=== PATIENT | male | born 1985 | race Caucasian/White ===

== ENCOUNTER 2024-12-07 14:44 | Emergency (ER) | payer OTHER, SELFPAY ==
[2024-12-07 14:53] VITALS: BP 175/82; PULSE 92; RESP 20; TEMP 36.4; O2SAT 98; BMI 31.3
[2024-12-07 15:35] LABS: Hematocrit* 47.5 % (37.0-53.0); Hemoglobin* 16.9 gm/dL (13.5-17.5); Immature Granulocytes Pct Auto 0.2 %; Mean Corpuscular HGB Conc 36 gm/dL (32-36); Mean Corpuscular Hemoglobin 32 pg (26-34); Mean Corpuscular Volume 90 fL (80-100); RDW Coefficient of Variation % 12.8 % (11.5-15.5); Red Blood Count* 5.26 m/uL (4.30-5.90); White Blood Count* 12.65 K/uL (4.50-11.00)
--- NOTE | 2024-12-07 15:37 | ED_ITS ---
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 ONE Administration Folic Acid 1 mg 12/07/24 21:29 12/07/24 21:40 Folic Acid 1 Mg Tablet PO 12/07/24 21:30 1 mg ONCE ONE Administration Hydroxyzine Pamoate 50 mg 12/07/24 22:50 12/07/24 23:11 Hydroxyzine Pamoate 25 Mg Capsule PO 12/07/24 22:51 50 mg ONCE ONE Administration Sodium Chloride 1,000 mls @ 1,000 mls/hr 12/07/24 19:59 12/07/24 21:34 0.9 % Sodium Chloride 1000 Ml IV 12/07/24 20:58 Infused .Q1H ELLE Infusion Lorazepam 0.5 mg 12/07/24 18:24 12/07/24 19:39 Lorazepam 2 Mg/Ml Inj IVP 12/07/24 18:25 Not Given ONCE ONE Lorazepam 1 mg 12/07/24 19:34 12/07/24 18:50 Lorazepam 2 Mg/Ml Inj IM 12/07/24 19:35 1 mg ONCE ONE Administration Lorazepam 1 mg 12/07/24 19:59 12/07/24 20:26 Lorazepam 2 Mg/Ml Inj IVP 12/07/24 20:00 1 mg ONCE ONE Administration Lorazepam 1 mg 12/08/24 01:01 12/08/24 02:37 Lorazepam 2 Mg/Ml Inj IVP 1 mg Q6H PRN Administration Multivitamins/Minerals 1 tab 12/07/24 21:29 12/07/24 21:41 Multivitamin/Minerals 1 Tablet PO 12/07/24 21:30 1 tab ONCE ONE Administration Nicotine 1 patch 12/07/24 20:00 12/07/24 20:22 Nicotine 21 Mg Patch TRANSDERMA 1 patch Q24H ELLE Administration Olanzapine 5 mg 12/07/24 19:34 12/07/24 18:50 Olanzapine 5 Mg Tab.Rapdis PO 12/07/24 19:35 5 mg ONCE ONE Administration Olanzapine 10 mg 12/08/24 01:01 12/08/24 01:25 Olanzapine 5 Mg Tab.Rapdis PO 12/08/24 01:02 10 mg ONCE ONE Administration Olanzapine 10 mg 12/08/24 01:23 12/08/24 02:03 Olanzapine 5 Mg Tab.Rapdis PO 12/08/24 01:24 Not Given ONCE ONE Thiamine HCl 100 mg 12/07/24 21:29 12/07/24 21:41 Thiamine 100 Mg Tablet PO 12/07/24 21:30 100 mg ONCE ONE Administration <Carleen Burnham MD - Last Filed: 12/08/24 07:51> Generic Name Dose Route Start Last Admin Trade Name Freq PRN Reason Stop Dose Admin Lorazepam 1 mg 12/08/24 06:09 12/08/24 06:28 Lorazepam 1 Mg Tablet PO 1 mg Q4H PRN Administration Nicotine 1 patch 12/08/24 02:45 12/08/24 02:37 Nicotine 21 Mg Patch TRANSDERMA 1 patch Q24H ELLE Administration Discontinued Medications Generic Name Dose Route Start Last Admin Trade Name Freq PRN Reason Stop Dose Admin Diazepam 10 mg 12/08/24 09:13 12/08/24 09:34 Diazepam 5 Mg/Ml Inj IV 12/08/24 09:14 10 mg ONCE ONE Administration Folic Acid 1 mg 12/07/24 21:29 12/07/24 21:40 Folic Acid 1 Mg Tablet PO 12/07/24 21:30 1 mg ONCE ONE Administration Hydroxyzine Pamoate 50 mg 12/07/24 22:50 12/07/24 23:11 Hydroxyzine Pamoate 25 Mg Capsule PO 12/07/24 22:51 50 mg ONCE ONE Administration Sodium Chloride 1,000 mls @ 1,000 mls/hr 12/07/24 19:59 12/07/24 21:34 0.9 % Sodium Chloride 1000 Ml IV 12/07/24 20:58 Infused .Q1H ELLE Infusion Lorazepam 0.5 mg 12/07/24 18:24 12/07/24 19:39 Lorazepam 2 Mg/Ml Inj IVP 12/07/24 18:25 Not Given ONCE ONE Lorazepam 1 mg 12/07/24 19:34 12/07/24 18:50 Lorazepam 2 Mg/Ml Inj IM 12/07/24 19:35 1 mg ONCE ONE Administration Lorazepam 1 mg 12/07/24 19:59 12/07/24 20:26 Lorazepam 2 Mg/Ml Inj IVP 12/07/24 20:00 1 mg ONCE ONE Administration Lorazepam 1 mg 12/08/24 01:01 12/08/24 02:37 Lorazepam 2 Mg/Ml Inj IVP 1 mg Q6H PRN Administration Multivitamins/Minerals 1 tab 12/07/24 21:29 12/07/24 21:41 Multivitamin/Minerals 1 Tablet PO 12/07/24 21:30 1 tab ONCE ONE Administration Nicotine 1 patch 12/07/24 20:00 12/07/24 20:22 Nicotine 21 Mg Patch TRANSDERMA 1 patch Q24H ELLE Administration Olanzapine 5 mg 12/07/24 19:34 12/07/24 18:50 Olanzapine 5 Mg Tab.Rapdis PO 12/07/24 19:35 5 mg ONCE ONE Administration Olanzapine 10 mg 12/08/24 01:01 12/08/24 01:25 Olanzapine 5 Mg Tab.Rapdis PO 12/08/24 01:02 10 mg ONCE ONE Administration Olanzapine 10 mg 12/08/24 01:23 12/08/24 02:03 Olanzapine 5 Mg Tab.Rapdis PO 12/08/24 01:24 Not Given ONCE ONE Thiamine HCl 100 mg 12/07/24 21:29 12/07/24 21:41 Thiamine 100 Mg Tablet PO 12/07/24 21:30 100 mg ONCE ONE Administration <Chip Badillo MD - Last Filed: 12/08/24 11:24> MDM - Psych MDM Narrative Medical decision making narrative: Patient is a 38-year-old male presenting to the emergency department for a psychiatric evaluation. Considering he has a plan on how he would commit suicide and his friend is very worried about him I do believe he will likely need inpatient treatment. He is agreeable to this. Will do psychiatric labs at this time. There is no signs of a right orbital fracture. I do not believe imaging is necessary. CBC, CMP, ethanol level, acetaminophen level, salicylate level, TSH, urinalysis, urine drug screen, COVID test all ordered. Patient's CBC shows slightly elevated white blood cell count but there is no clear signs of infection. CMP shows a sodium of 129 with elevated liver enzymes. Liver enzymes are consistent with alcoholic liver disease. Likely his low sodium is due to his alcohol drinking. Will check a magnesium. Salicylate and acetaminophen levels are not concerning. His alcohol level is 0.37%. DEVIKA did speak to the patient and agrees the patient needs inpatient admission. He is voluntary at this time. Rest of patient's lab work returned any he is medically cleared for transfer. <Beltran Zavala, DO - Last Filed: 12/07/24 16:30> Patient is a 38-year-old male presenting to the emergency department for a psychiatric evaluation. Considering he has a plan on how he would commit suicide and his friend is very worried about him I do believe he will likely need inpatient treatment. He is agreeable to this. Will do psychiatric labs at this time. There is no signs of a right orbital fracture. I do not believe imaging is necessary. CBC, CMP, ethanol level, acetaminophen level, salicylate level, TSH, urinalysis, urine drug screen, COVID test all ordered. Patient's CBC shows slightly elevated white blood cell count but there is no clear signs of infection. CMP shows a sodium of 129 with elevated liver enzymes. Liver enzymes are consistent with alcoholic liver disease. Likely his low sodium is due to his alcohol drinking. Will check a magnesium. Salicylate and acetaminophen levels are not concerning. His alcohol level is 0.37%. DEVIKA did speak to the patient and agrees the patient needs inpatient admission. He is voluntary at this time. Rest of patient's lab work returned any he is medically cleared for transfer. Patient was signed out to me by my colleague Dr. Zavala. During patient's stay he was a very nice but started getting more more agitated wanting his phone. I spoke to him and he was agreeable to Ativan and he was given 1 mg IM. Unfortunately he then wanted to go in nursing staff taking a give me. I did stop him from going and I will therefore put him on a hold. He was agreeable to Zyprexa 5 mg p.o.. However in discussion with him if he became much more cooperative. He expressed his sadness at losing his dad. Notes that since losing his dad his mom had moved into min she recently moved out and she he is missing that interaction. States he was very close with his dad. In addition he came out to his mom which did not go as he had hoped. His friends however been very supportive and loving with him. At this time he is agreeable to stay. I do place him on the hold however as he is in my opinion at high risk for self-harm. He is requesting the ability to vape but of do not feel that it would be safe for him to call side at this time even though he is agreed to be cooperative. Instead we have looked for a Nicotrol inhaler but we do not have that. Will use the nicotine 21 mcg patch. Patient seemed to be improved after this but then started feeling anxious once again. Very tearful. States his heart was pounding. His pulse was normal. At this time will place an IV given 1 L of normal saline as well as 1 mg IV Ativan. Addendum: Patient feeling much better at this time. We were able to obtain some Gatorade and he was able to drink that as well as eat a sandwich and some chips. He had not eaten in approximately 3 days. Assessment/plan : 1. Suicidal ideation-likely complicated by grief reaction from losing his dad as well as coming out being gait to his mom which did not go as planned. He has been tearful here. At 1 time felt that he just really wanted to leave but we were able to talk to him. He is very kind and is very directable and cooperative. Because he did attempt to leave and I told him I would not allow him to leave will place him on a hold at this time. DEVIKA is assisting us with placement. Given his agitation, tearfulness patient had been given 1 mg IM Ativan followed by Zyprexa 5 mg. We followed that with an additional 1 mg of IV Ativan with improvement. 2. Alcohol intoxication-a level 0.37. Patient denies history of withdrawal or seizures. Will continue to monitor. Patient has mild elevation of AST 125, ALT of 80. TSH is normal. U tox positive for marijuana no other drugs. Patient receives folic acid 1 mg, Thiamine 100 mg and multivitamin. 3. Disposition-awaiting placement for depression, suicidal ideation. In addition Chip's friend has been instructed to have all of his guns removed from the house. This happened prior to me taking over the patient. I was told that patient had been medically cleared for transfer but this does not appear to be communicated to nursing staff. Elevated alcohol level I think it is best that he sleep ear tonight. Will we do DEVIKA evaluation tomorrow morning. Patient is on a hold. Will initiate CIWA for history of alcohol abuse although he denies withdrawal or seizure. He is not in withdrawal tonight-I believe he is agitated from the events of the past year and especially in the past week. 2330: Patient requesting sleep medications. He is feeling much better after normal saline bolus. Hydroxyzine 50 mg p.o. was given. Will sign this patient out to my colleague Dr. Burnham. <Micki Rolon MD - Last Filed: 12/07/24 23:31> Medical Records Attestation: I reviewed the patient's medical records. <Micki Rolon MD - Last Filed: 12/07/24 23:31> Lab Data Attestation: I reviewed the patient's lab results. <Micki Rolon MD - Last Filed: 12/07/24 23:31> Labs: Lab Results 12/07/24 12/07/24 12/07/24 Range/Units 15:15 15:23 15:55 WBC 12.65 H (4.50-11.00) K/uL RBC 5.26 (4.30-5.90) m/uL Hgb 16.9 (13.5-17.5) gm/dL Hct 47.5 (37.0-53.0) % MCV 90 (80-100) fL MCH 32 (26-34) pg MCHC 36 (32-36) gm/dL RDW Coeff of [place] 12.8 (11.5-15.5) % Plt Count 284 (140-440) K/uL Neut % (Auto) 81.7 H (42.0-72.0) % Lymph % (Auto) 11.4 L (20-44) % [place] % (Auto) 6.3 (0.0-11.0) % Eos % (Auto) 0.3 (0.0-7.0) % Baso % (Auto) 0.1 (0.0-3.0) % Neut # (Auto) 10.30 H (1.7-7.0) K/uL Lymph # (Auto) 1.40 (0.90-2.90) K/uL [place] # (Auto) 0.80 (0.00-0.90) K/UL Eos # (Auto) 0.00 (0.00-0.50) K/uL Baso # (Auto) 0.00 (0.00-0.30) K/uL Abs Immat Gran (auto) 0.00 (0.00-0.30) K/uL Imm/Tot Granulo (auto) 0.2 % Sodium 129 L (135-149) mmol/L Potassium 4.5 (3.6-5.1) mmol/L Chloride 89 L (96-114) mmol/L Carbon Dioxide 25 (20-32) mmol/L Anion Gap 15 (7-15) mEq/L BUN 7 (5-24) mg/dL Creatinine 0.9 (0.5-1.5) mg/dL Estimated Creat Clear 102.01 Estimated GFR 111 ml/min Glucose 135 H (60-115) mg/dL Calcium 9.3 (8.4-10.6) mg/dL Magnesium 2.1 (1.5-2.6) mg/dL Total Bilirubin 1.2 (0.1-1.5) mg/dL AST 125 H (12-35) U/L ALT 80 H (4-50) U/L Alkaline Phosphatase 103 (40-150) U/L Total Protein 8.7 H (6.0-8.3) g/dL Albumin 5.2 H (3.3-5.0) g/dL TSH 0.366 (0.270-4.20) uIU/mL Urine Color Yellow (Yellow) Urine Appearance Clear (Clear) Urine pH 6.5 (5.0-8.5) Ur Specific [place] 1.010 (1.000-1.030) Urine Protein 1+ A (Negative) Urine Glucose (UA) Negative (Negative) Urine Ketones Negative (Negative) Urine Blood 2+ A (Negative) Urine Nitrite Negative (Negative) Urine Bilirubin Negative (Negative) Urine Urobilinogen 1.0 (0.2-1.0) Ur Leukocyte Esterase Negative (Negative) Urine RBC 0-2 (0-2) Urine WBC 0-2 (0-5) Ur Squamous Epith Cells Few (None-Few) Urine Bacteria None (None) Salicylates < 1.0 L (1.0-10) mg/dL Urine Opiates Screen Negative (Negative) Ur Oxycodone Screen Negative (Negative) Urine Methadone Screen Negative (Negative) Acetaminophen < 10.0 (10.0-30.0) ug/mL Ur Barbiturates Screen Negative (Negative) U Tricyclic Antidepress Negative (Negative) Ur Phencyclidine Scrn Negative (Negative) Ur Amphetamines Screen Negative (Negative) U Methamphetamines Scrn Negative (Negative) U Benzodiazepines Scrn Negative (Negative) Urine Cocaine Screen Negative (Negative) U Marijuana (THC) Screen POSITIVE A (Negative) Ur Drug Screen Comment See Note Ethyl Alcohol 0.37 H* (0.01-0.03) % SARS-CoV-2 (PCR) Negative SARS-CoV-2 (Negative) Lab Acknowledgement 12/07/24 12/08/24 Range/Units 16:01 06:52 WBC (4.50-11.00) K/uL RBC (4.30-5.90) m/uL Hgb (13.5-17.5) gm/dL Hct (37.0-53.0) % MCV (80-100) fL MCH (26-34) pg MCHC (32-36) gm/dL RDW Coeff of [place] (11.5-15.5) % Plt Count (140-440) K/uL Neut % (Auto) (42.0-72.0) % Lymph % (Auto) (20-44) % [place] % (Auto) (0.0-11.0) % Eos % (Auto) (0.0-7.0) % Baso % (Auto) (0.0-3.0) % Neut # (Auto) (1.7-7.0) K/uL Lymph # (Auto) (0.90-2.90) K/uL [place] # (Auto) (0.00-0.90) K/UL Eos # (Auto) (0.00-0.50) K/uL Baso # (Auto) (0.00-0.30) K/uL Abs Immat Gran (auto) (0.00-0.30) K/uL Imm/Tot Granulo (auto) % Sodium (135-149) mmol/L Potassium (3.6-5.1) mmol/L Chloride (96-114) mmol/L Carbon Dioxide (20-32) mmol/L Anion Gap (7-15) mEq/L BUN (5-24) mg/dL Creatinine (0.5-1.5) mg/dL Estimated Creat Clear Estimated GFR ml/min Glucose (60-115) mg/dL Calcium (8.4-10.6) mg/dL Magnesium (1.5-2.6) mg/dL Total Bilirubin (0.1-1.5) mg/dL AST (12-35) U/L ALT (4-50) U/L Alkaline Phosphatase (40-150) U/L Total Protein (6.0-8.3) g/dL Albumin (3.3-5.0) g/dL TSH (0.270-4.20) uIU/mL Urine Color (Yellow) Urine Appearance (Clear) Urine pH (5.0-8.5) Ur Specific [place] (1.000-1.030) Urine Protein (Negative) Urine Glucose (UA) (Negative) Urine Ketones (Negative) Urine Blood (Negative) Urine Nitrite (Negative) Urine Bilirubin (Negative) Urine Urobilinogen (0.2-1.0) Ur Leukocyte Esterase (Negative) Urine RBC (0-2) Urine WBC (0-5) Ur Squamous Epith Cells (None-Few) Urine Bacteria (None) Salicylates (1.0-10) mg/dL Urine Opiates Screen (Negative) Ur Oxycodone Screen (Negative) Urine Methadone Screen (Negative) Acetaminophen (10.0-30.0) ug/mL Ur Barbiturates Screen (Negative) U Tricyclic Antidepress (Negative) Ur Phencyclidine Scrn (Negative) Ur Amphetamines Screen (Negative) U Methamphetamines Scrn (Negative) U Benzodiazepines Scrn (Negative) Urine Cocaine Screen (Negative) U Marijuana (THC) Screen (Negative) Ur Drug Screen Comment Ethyl Alcohol < 0.01 (0.01-0.03) % SARS-CoV-2 (PCR) (Negative) Lab Acknowledgement Test Added <Beltran Zavala, DO - Last Filed: 12/07/24 16:30> Lab Results 12/07/24 12/07/24 12/07/24 Range/Units 15:15 15:23 15:55 WBC 12.65 H (4.50-11.00) K/uL RBC 5.26 (4.30-5.90) m/uL Hgb 16.9 (13.5-17.5) gm/dL Hct 47.5 (37.0-53.0) % MCV 90 (80-100) fL MCH 32 (26-34) pg MCHC 36 (32-36) gm/dL RDW Coeff of [place] 12.8 (11.5-15.5) % Plt Count 284 (140-440) K/uL Neut % (Auto) 81.7 H (42.0-72.0) % Lymph % (Auto) 11.4 L (20-44) % [place] % (Auto) 6.3 (0.0-11.0) % Eos % (Auto) 0.3 (0.0-7.0) % Baso % (Auto) 0.1 (0.0-3.0) % Neut # (Auto) 10.30 H (1.7-7.0) K/uL Lymph # (Auto) 1.40 (0.90-2.90) K/uL [place] # (Auto) 0.80 (0.00-0.90) K/UL Eos # (Auto) 0.00 (0.00-0.50) K/uL Baso # (Auto) 0.00 (0.00-0.30) K/uL Abs Immat Gran (auto) 0.00 (0.00-0.30) K/uL Imm/Tot Granulo (auto) 0.2 % Sodium 129 L (135-149) mmol/L Potassium 4.5 (3.6-5.1) mmol/L Chloride 89 L (96-114) mmol/L Carbon Dioxide 25 (20-32) mmol/L Anion Gap 15 (7-15) mEq/L BUN 7 (5-24) mg/dL Creatinine 0.9 (0.5-1.5) mg/dL Estimated Creat Clear 102.01 Estimated GFR 111 ml/min Glucose 135 H (60-115) mg/dL Calcium 9.3 (8.4-10.6) mg/dL Magnesium 2.1 (1.5-2.6) mg/dL Total Bilirubin 1.2 (0.1-1.5) mg/dL AST 125 H (12-35) U/L ALT 80 H (4-50) U/L Alkaline Phosphatase 103 (40-150) U/L Total Protein 8.7 H (6.0-8.3) g/dL Albumin 5.2 H (3.3-5.0) g/dL TSH 0.366 (0.270-4.20) uIU/mL Urine Color Yellow (Yellow) Urine Appearance Clear (Clear) Urine pH 6.5 (5.0-8.5) Ur Specific [place] 1.010 (1.000-1.030) Urine Protein 1+ A (Negative) Urine Glucose (UA) Negative (Negative) Urine Ketones Negative (Negative) Urine Blood 2+ A (Negative) Urine Nitrite Negative (Negative) Urine Bilirubin Negative (Negative) Urine Urobilinogen 1.0 (0.2-1.0) Ur Leukocyte Esterase Negative (Negative) Urine RBC 0-2 (0-2) Urine WBC 0-2 (0-5) Ur Squamous Epith Cells Few (None-Few) Urine Bacteria None (None) Salicylates < 1.0 L (1.0-10) mg/dL Urine Opiates Screen Negative (Negative) Ur Oxycodone Screen Negative (Negative) Urine Methadone Screen Negative (Negative) Acetaminophen < 10.0 (10.0-30.0) ug/mL Ur Barbiturates Screen Negative (Negative) U Tricyclic Antidepress Negative (Negative) Ur Phencyclidine Scrn Negative (Negative) Ur Amphetamines Screen Negative (Negative) U Methamphetamines Scrn Negative (Negative) U Benzodiazepines Scrn Negative (Negative) Urine Cocaine Screen Negative (Negative) U Marijuana (THC) Screen POSITIVE A (Negative) Ur Drug Screen Comment See Note Ethyl Alcohol 0.37 H* (0.01-0.03) % SARS-CoV-2 (PCR) Negative SARS-CoV-2 (Negative) Lab Acknowledgement 12/07/24 12/08/24 Range/Units 16:01 06:52 WBC (4.50-11.00) K/uL RBC (4.30-5.90) m/uL Hgb (13.5-17.5) gm/dL Hct (37.0-53.0) % MCV (80-100) fL MCH (26-34) pg MCHC (32-36) gm/dL RDW Coeff of Sylv[place] (11.5-15.5) % Plt Count (140-440) K/uL Neut % (Auto) (42.0-72.0) % Lymph % (Auto) (20-44) % [place] % (Auto) (0.0-11.0) % Eos % (Auto) (0.0-7.0) % Baso % (Auto) (0.0-3.0) % Neut # (Auto) (1.7-7.0) K/uL Lymph # (Auto) (0.90-2.90) K/uL [place] # (Auto) (0.00-0.90) K/UL Eos # (Auto) (0.00-0.50) K/uL Baso # (Auto) (0.00-0.30) K/uL Abs Immat Gran (auto) (0.00-0.30) K/uL Imm/Tot Granulo (auto) % Sodium (135-149) mmol/L Potassium (3.6-5.1) mmol/L Chloride (96-114) mmol/L Carbon Dioxide (20-32) mmol/L Anion Gap (7-15) mEq/L BUN (5-24) mg/dL Creatinine (0.5-1.5) mg/dL Estimated Creat Clear Estimated GFR ml/min Glucose (60-115) mg/dL Calcium (8.4-10.6) mg/dL Magnesium (1.5-2.6) mg/dL Total Bilirubin (0.1-1.5) mg/dL AST (12-35) U/L ALT (4-50) U/L Alkaline Phosphatase (40-150) U/L Total Protein (6.0-8.3) g/dL Albumin (3.3-5.0) g/dL TSH (0.270-4.20) uIU/mL Urine Color (Yellow) Urine Appearance (Clear) Urine pH (5.0-8.5) Ur Specific [place] (1.000-1.030) Urine Protein (Negative) Urine Glucose (UA) (Negative) Urine Ketones (Negative) Urine Blood (Negative) Urine Nitrite (Negative) Urine Bilirubin (Negative) Urine Urobilinogen (0.2-1.0) Ur Leukocyte Esterase (Negative) Urine RBC (0-2) Urine WBC (0-5) Ur Squamous Epith Cells (None-Few) Urine Bacteria (None) Salicylates (1.0-10) mg/dL Urine Opiates Screen (Negative) Ur Oxycodone Screen (Negative) Urine Methadone Screen (Negative) Acetaminophen (10.0-30.0) ug/mL Ur Barbiturates Screen (Negative) U Tricyclic Antidepress (Negative) Ur Phencyclidine Scrn (Negative) Ur Amphetamines Screen (Negative) U Methamphetamines Scrn (Negative) U Benzodiazepines Scrn (Negative) Urine Cocaine Screen (Negative) U Marijuana (THC) Screen (Negative) Ur Drug Screen Comment Ethyl Alcohol < 0.01 (0.01-0.03) % SARS-CoV-2 (PCR) (Negative) Lab Acknowledgement Test Added <Micki Rolon MD - Last Filed: 12/07/24 23:31> Lab Results 12/07/24 12/07/24 12/07/24 Range/Units 15:15 15:23 15:55 WBC 12.65 H (4.50-11.00) K/uL RBC 5.26 (4.30-5.90) m/uL Hgb 16.9 (13.5-17.5) gm/dL Hct 47.5 (37.0-53.0) % MCV 90 (80-100) fL MCH 32 (26-34) pg MCHC 36 (32-36) gm/dL RDW Coeff of [place] 12.8 (11.5-15.5) % Plt Count 284 (140-440) K/uL Neut % (Auto) 81.7 H (42.0-72.0) % Lymph % (Auto) 11.4 L (20-44) % [place] % (Auto) 6.3 (0.0-11.0) % Eos % (Auto) 0.3 (0.0-7.0) % Baso % (Auto) 0.1 (0.0-3.0) % Neut # (Auto) 10.30 H (1.7-7.0) K/uL Lymph # (Auto) 1.40 (0.90-2.90) K/uL [place] # (Auto) 0.80 (0.00-0.90) K/UL Eos # (Auto) 0.00 (0.00-0.50) K/uL Baso # (Auto) 0.00 (0.00-0.30) K/uL Abs Immat Gran (auto) 0.00 (0.00-0.30) K/uL Imm/Tot Granulo (auto) 0.2 % Sodium 129 L (135-149) mmol/L Potassium 4.5 (3.6-5.1) mmol/L Chloride 89 L (96-114) mmol/L Carbon Dioxide 25 (20-32) mmol/L Anion Gap 15 (7-15) mEq/L BUN 7 (5-24) mg/dL Creatinine 0.9 (0.5-1.5) mg/dL Estimated Creat Clear 102.01 Estimated GFR 111 ml/min Glucose 135 H (60-115) mg/dL Calcium 9.3 (8.4-10.6) mg/dL Magnesium 2.1 (1.5-2.6) mg/dL Total Bilirubin 1.2 (0.1-1.5) mg/dL AST 125 H (12-35) U/L ALT 80 H (4-50) U/L Alkaline Phosphatase 103 (40-150) U/L Total Protein 8.7 H (6.0-8.3) g/dL Albumin 5.2 H (3.3-5.0) g/dL TSH 0.366 (0.270-4.20) uIU/mL Urine Color Yellow (Yellow) Urine Appearance Clear (Clear) Urine pH 6.5 (5.0-8.5) Ur Specific [place] 1.010 (1.000-1.030) Urine Protein 1+ A (Negative) Urine Glucose (UA) Negative (Negative) Urine Ketones Negative (Negative) Urine Blood 2+ A (Negative) Urine Nitrite Negative (Negative) Urine Bilirubin Negative (Negative) Urine Urobilinogen 1.0 (0.2-1.0) Ur Leukocyte Esterase Negative (Negative) Urine RBC 0-2 (0-2) Urine WBC 0-2 (0-5) Ur Squamous Epith Cells Few (None-Few) Urine Bacteria None (None) Salicylates < 1.0 L (1.0-10) mg/dL Urine Opiates Screen Negative (Negative) Ur Oxycodone Screen Negative (Negative) Urine Methadone Screen Negative (Negative) Acetaminophen < 10.0 (10.0-30.0) ug/mL Ur Barbiturates Screen Negative (Negative) U Tricyclic Antidepress Negative (Negative) Ur Phencyclidine Scrn Negative (Negative) Ur Amphetamines Screen Negative (Negative) U Methamphetamines Scrn Negative (Negative) U Benzodiazepines Scrn Negative (Negative) Urine Cocaine Screen Negative (Negative) U Marijuana (THC) Screen POSITIVE A (Negative) Ur Drug Screen Comment See Note Ethyl Alcohol 0.37 H* (0.01-0.03) % SARS-CoV-2 (PCR) Negative SARS-CoV-2 (Negative) Lab Acknowledgement 12/07/24 12/08/24 Range/Units 16:01 06:52 WBC (4.50-11.00) K/uL RBC (4.30-5.90) m/uL Hgb (13.5-17.5) gm/dL Hct (37.0-53.0) % MCV (80-100) fL MCH (26-34) pg MCHC (32-36) gm/dL RDW Coeff of [place] (11.5-15.5) % Plt Count (140-440) K/uL Neut % (Auto) (42.0-72.0) % Lymph % (Auto) (20-44) % [place] % (Auto) (0.0-11.0) % Eos % (Auto) (0.0-7.0) % Baso % (Auto) (0.0-3.0) % Neut # (Auto) (1.7-7.0) K/uL Lymph # (Auto) (0.90-2.90) K/uL [place] # (Auto) (0.00-0.90) K/UL Eos # (Auto) (0.00-0.50) K/uL Baso # (Auto) (0.00-0.30) K/uL Abs Immat Gran (auto) (0.00-0.30) K/uL Imm/Tot Granulo (auto) % Sodium (135-149) mmol/L Potassium (3.6-5.1) mmol/L Chloride (96-114) mmol/L Carbon Dioxide (20-32) mmol/L Anion Gap (7-15) mEq/L BUN (5-24) mg/dL Creatinine (0.5-1.5) mg/dL Estimated Creat Clear Estimated GFR ml/min Glucose (60-115) mg/dL Calcium (8.4-10.6) mg/dL Magnesium (1.5-2.6) mg/dL Total Bilirubin (0.1-1.5) mg/dL AST (12-35) U/L ALT (4-50) U/L Alkaline Phosphatase (40-150) U/L Total Protein (6.0-8.3) g/dL Albumin (3.3-5.0) g/dL TSH (0.270-4.20) uIU/mL Urine Color (Yellow) Urine Appearance (Clear) Urine pH (5.0-8.5) Ur Specific [place] (1.000-1.030) Urine Protein (Negative) Urine Glucose (UA) (Negative) Urine Ketones (Negative) Urine Blood (Negative) Urine Nitrite (Negative) Urine Bilirubin (Negative) Urine Urobilinogen (0.2-1.0) Ur Leukocyte Esterase (Negative) Urine RBC (0-2) Urine WBC (0-5) Ur Squamous Epith Cells (None-Few) Urine Bacteria (None) Salicylates (1.0-10) mg/dL Urine Opiates Screen (Negative) Ur Oxycodone Screen (Negative) Urine Methadone Screen (Negative) Acetaminophen (10.0-30.0) ug/mL Ur Barbiturates Screen (Negative) U Tricyclic Antidepress (Negative) Ur Phencyclidine Scrn (Negative) Ur Amphetamines Screen (Negative) U Methamphetamines Scrn (Negative) U Benzodiazepines Scrn (Negative) Urine Cocaine Screen (Negative) U Marijuana (THC) Screen (Negative) Ur Drug Screen Comment Ethyl Alcohol < 0.01 (0.01-0.03) % SARS-CoV-2 (PCR) (Negative) Lab Acknowledgement Test Added <Carleen Burnham MD - Last Filed: 12/08/24 07:51> Lab Results 12/07/24 12/07/24 12/07/24 Range/Units 15:15 15:23 15:55 WBC 12.65 H (4.50-11.00) K/uL RBC 5.26 (4.30-5.90) m/uL Hgb 16.9 (13.5-17.5) gm/dL Hct 47.5 (37.0-53.0) % MCV 90 (80-100) fL MCH 32 (26-34) pg MCHC 36 (32-36) gm/dL RDW Coeff of Sylvain 12.8 (11.5-15.5) % Plt Count 284 (140-440) K/uL Neut % (Auto) 81.7 H (42.0-72.0) % Lymph % (Auto) 11.4 L (20-44) % [place] % (Auto) 6.3 (0.0-11.0) % Eos % (Auto) 0.3 (0.0-7.0) % Baso % (Auto) 0.1 (0.0-3.0) % Neut # (Auto) 10.30 H (1.7-7.0) K/uL Lymph # (Auto) 1.40 (0.90-2.90) K/uL [place] # (Auto) 0.80 (0.00-0.90) K/UL Eos # (Auto) 0.00 (0.00-0.50) K/uL Baso # (Auto) 0.00 (0.00-0.30) K/uL Abs Immat Gran (auto) 0.00 (0.00-0.30) K/uL Imm/Tot Granulo (auto) 0.2 % Sodium 129 L (135-149) mmol/L Potassium 4.5 (3.6-5.1) mmol/L Chloride 89 L (96-114) mmol/L Carbon Dioxide 25 (20-32) mmol/L Anion Gap 15 (7-15) mEq/L BUN 7 (5-24) mg/dL Creatinine 0.9 (0.5-1.5) mg/dL Estimated Creat Clear 102.01 Estimated GFR 111 ml/min Glucose 135 H (60-115) mg/dL Calcium 9.3 (8.4-10.6) mg/dL Magnesium 2.1 (1.5-2.6) mg/dL Total Bilirubin 1.2 (0.1-1.5) mg/dL AST 125 H (12-35) U/L ALT 80 H (4-50) U/L Alkaline Phosphatase 103 (40-150) U/L Total Protein 8.7 H (6.0-8.3) g/dL Albumin 5.2 H (3.3-5.0) g/dL TSH 0.366 (0.270-4.20) uIU/mL Urine Color Yellow (Yellow) Urine Appearance Clear (Clear) Urine pH 6.5 (5.0-8.5) Ur Specific [place] 1.010 (1.000-1.030) Urine Protein 1+ A (Negative) Urine Glucose (UA) Negative (Negative) Urine Ketones Negative (Negative) Urine Blood 2+ A (Negative) Urine Nitrite Negative (Negative) Urine Bilirubin Negative (Negative) Urine Urobilinogen 1.0 (0.2-1.0) Ur Leukocyte Esterase Negative (Negative) Urine RBC 0-2 (0-2) Urine WBC 0-2 (0-5) Ur Squamous Epith Cells Few (None-Few) Urine Bacteria None (None) Salicylates < 1.0 L (1.0-10) mg/dL Urine Opiates Screen Negative (Negative) Ur Oxycodone Screen Negative (Negative) Urine Methadone Screen Negative (Negative) Acetaminophen < 10.0 (10.0-30.0) ug/mL Ur Barbiturates Screen Negative (Negative) U Tricyclic Antidepress Negative (Negative) Ur Phencyclidine Scrn Negative (Negative) Ur Amphetamines Screen Negative (Negative) U Methamphetamines Scrn Negative (Negative) U Benzodiazepines Scrn Negative (Negative) Urine Cocaine Screen Negative (Negative) U Marijuana (THC) Screen POSITIVE A (Negative) Ur Drug Screen Comment See Note Ethyl Alcohol 0.37 H* (0.01-0.03) % SARS-CoV-2 (PCR) Negative SARS-CoV-2 (Negative) Lab Acknowledgement 12/07/24 12/08/24 Range/Units 16:01 06:52 WBC (4.50-11.00) K/uL RBC (4.30-5.90) m/uL Hgb (13.5-17.5) gm/dL Hct (37.0-53.0) % MCV (80-100) fL MCH (26-34) pg MCHC (32-36) gm/dL RDW Coeff of Sylv[place] (11.5-15.5) % Plt Count (140-440) K/uL Neut % (Auto) (42.0-72.0) % Lymph % (Auto) (20-44) % [place] % (Auto) (0.0-11.0) % Eos % (Auto) (0.0-7.0) % Baso % (Auto) (0.0-3.0) % Neut # (Auto) (1.7-7.0) K/uL Lymph # (Auto) (0.90-2.90) K/uL [place] # (Auto) (0.00-0.90) K/UL Eos # (Auto) (0.00-0.50) K/uL Baso # (Auto) (0.00-0.30) K/uL Abs Immat Gran (auto) (0.00-0.30) K/uL Imm/Tot Granulo (auto) % Sodium (135-149) mmol/L Potassium (3.6-5.1) mmol/L Chloride (96-114) mmol/L Carbon Dioxide (20-32) mmol/L Anion Gap (7-15) mEq/L BUN (5-24) mg/dL Creatinine (0.5-1.5) mg/dL Estimated Creat Clear Estimated GFR ml/min Glucose (60-115) mg/dL Calcium (8.4-10.6) mg/dL Magnesium (1.5-2.6) mg/dL Total Bilirubin (0.1-1.5) mg/dL AST (12-35) U/L ALT (4-50) U/L Alkaline Phosphatase (40-150) U/L Total Protein (6.0-8.3) g/dL Albumin (3.3-5.0) g/dL TSH (0.270-4.20) uIU/mL Urine Color (Yellow) Urine Appearance (Clear) Urine pH (5.0-8.5) Ur Specific [place] (1.000-1.030) Urine Protein (Negative) Urine Glucose (UA) (Negative) Urine Ketones (Negative) Urine Blood (Negative) Urine Nitrite (Negative) Urine Bilirubin (Negative) Urine Urobilinogen (0.2-1.0) Ur Leukocyte Esterase (Negative) Urine RBC (0-2) Urine WBC (0-5) Ur Squamous Epith Cells (None-Few) Urine Bacteria (None) Salicylates (1.0-10) mg/dL Urine Opiates Screen (Negative) Ur Oxycodone Screen (Negative) Urine Methadone Screen (Negative) Acetaminophen (10.0-30.0) ug/mL Ur Barbiturates Screen (Negative) U Tricyclic Antidepress (Negative) Ur Phencyclidine Scrn (Negative) Ur Amphetamines Screen (Negative) U Methamphetamines Scrn (Negative) U Benzodiazepines Scrn (Negative) Urine Cocaine Screen (Negative) U Marijuana (THC) Screen (Negative) Ur Drug Screen Comment Ethyl Alcohol < 0.01 (0.01-0.03) % SARS-CoV-2 (PCR) (Negative) Lab Acknowledgement Test Added <Chip Badillo MD - Last Filed: 12/08/24 11:24> Discharge Plan Discharge Clinical Impression: Suicidal ideation, Alcohol abuse, Alcohol withdrawal <Beltran Zavala DO - Last Filed: 12/07/24 16:30> Patient Disposition: Home, Self-Care <Beltran Zavala DO - Last Filed: 12/07/24 16:30> Condition: Guarded <Beltran Zavala DO - Last Filed: 12/07/24 16:30> Additional Instructions: As we discussed, I recommend that you transfer for inpatient treatment of your alcohol withdrawal and alcohol use as well as for evaluation for Psychiatry and Mental Health. I am worried that if you go home you will have a hard time staying sober. At this point, since you are clinically sober and not having any thoughts of self-harm, I cannot hold you in the hospital against your will or force you to go into treatment. You are choosing to go home. Remember, you can come back to the ER any time if you need help. Alcohol withdrawal can be very dangerous, and sometimes can be deadly. Use the lorazepam (Ativan) if needed to help treat withdrawal symptoms such as shakiness, anxiety, nausea. Do not drive for 6 hours after taking lorazepam. Return to the ER right away if you have any more thoughts of suicide or self- harm, or if you have worsening withdrawal, shakiness, headache, vomiting, seizures, or other problems. Please follow-up with your outpatient mental health but treatment. We were able to give an appointment with a mental health provider- Guanako Bridges. Please follow- up for your appointment. Your appointment with Guanako Bridges DNP at [email or web address] is Saturday, December 14, 2024 at [address], [place] [address]. We do not have the ability to set up with alcohol treatment. Please refer to the alcohol treatment resources and call to arrange your own outpatient alcohol treatment. <Beltran Zavala DO - Last Filed: 12/07/24 16:30> Prescriptions: No Action No Known Home Medications <Beltran Zavala DO - Last Filed: 12/07/24 16:30> Follow Up/Referrals: Provider,Not a Local [Primary Care Provider, Family Practice] <Beltran Zavala DO - Last Filed: 12/07/24 16:30> Stand Alone Forms: [facility] Info Instructions <Beltran Zavala DO - Last Filed: 12/07/24 16:30>
[2024-12-07 15:39] LABS: Immature Granulocytes Abs Auto 0.00 K/uL (0.00-0.30); Lymphocytes Absolute Auto 1.40 K/uL (0.90-2.90); Slide Review Reflex No
[2024-12-07 15:48] LABS: Albumin* 5.2 g/dL (3.3-5.0); Chloride* 89 mmol/L (96-114); Sodium* 129 mmol/L (135-149)
[2024-12-07 15:49] LABS: Potassium* 4.5 mmol/L (3.6-5.1)
[2024-12-07 15:51] LABS: Alanine Aminotransferase* 80 U/L (4-50); Alkaline Phosphatase* 103 U/L (40-150); Anion Gap 15 mEq/L (7-15); Aspartate Amino Transferase* 125 U/L (12-35); Bilirubin Total* 1.2 mg/dL (0.1-1.5); Blood Urea Nitrogen* 7 mg/dL (5-24); Calcium* 9.3 mg/dL (8.4-10.6); Carbon Dioxide* 25 mmol/L (20-32); Creatinine* 0.9 mg/dL (0.5-1.5); Est. Creatinine Clearance* 102.01; Estimated Glomerular Filt Rate 111 ml/min; Glucose* 135 mg/dL (60-115)
[2024-12-07 15:52] LABS: Total Protein* 8.7 g/dL (6.0-8.3)
[2024-12-07 15:55] LABS: Acetaminophen* < 10.0 ug/mL (10.0-30.0); Salicylate* < 1.0 mg/dL (1.0-10)
[2024-12-07 16:04] LABS: SARS PCR* Negative SARS-CoV-2 (Negative)
[2024-12-07 16:08] LABS: Ethanol* 0.37 % (0.01-0.03)
[2024-12-07 16:17] LABS: Appearance Urine Clear (Clear)
[2024-12-07 16:25] LABS: Cannabinoid Screen Urine POSITIVE (Negative); Methamphetamines Screen Urine Negative (Negative); Tricyclic Antidepressant Urine Negative (Negative)
[2024-12-07] MEDS: NICOTINE 21 MG PATCH 1 PATCH TRANSDERMA (20:22)
[2024-12-07] MEDS: FOLIC ACID 1 MG TABLET PO (21:40)
[2024-12-07] MEDS: THIAMINE 100 MG TABLET PO (21:41)
[2024-12-07] MEDS: MULTIVITAMIN/MINERALS 1 TABLET 1 TAB PO (21:41)
[2024-12-07 21:54] VITALS: BP 158/104; PULSE 106; RESP 18; TEMP 36.4; O2SAT 97
[2024-12-08] VITALS (7 sets, daily range): BP systolic 162–183; BP diastolic 102–112; PULSE 82–101; RESP 16–20; TEMP 37.1–37.7; O2SAT 91–96
[2024-12-08] MEDS: NICOTINE 21 MG PATCH 1 PATCH TRANSDERMA (02:37)
[2024-12-08 07:24] LABS: Ethanol* < 0.01 % (0.01-0.03)
[2024-12-08] MEDS: diazePAM 5 MG/ML inj 10 MG IV (09:34)
== END 2024-12-08 11:33 | disposition home or self-care (01) ==
PROVIDERS: Family Medicine; Student in an Organized Health Care Education/Training Program; Emergency Provider Emergency Medicine
DX: R45.851 Suicidal ideations (principal); F10.139 Alcohol abuse with withdrawal, unspecified; Y90.9 Presence of alcohol in blood, level not specified
CPT/HCPCS: 36415; 80053; 80143; 80179; 80306; 81001; 81003; 82077; 83735; 84443; 85025; 87635; 96361; 96372; 96374; 96375; 96376; 99285; Q3014; A9153; A9270; J2060; J3360; J7030; S4990

== ENCOUNTER 2025-01-19 13:44 | Outpatient (CLI) | payer OTHER, SELFPAY | END 2025-01-19 13:45 | disposition home or self-care (01) | LOC: AMB 01-23 05:43 | PROVIDERS: Visit Provider Emergency Medicine Emergency Medical Services | DX: F10.129 Alcohol abuse with intoxication, unspecified (principal) | CPT/HCPCS: A0425; A0429 ==